=== PATIENT | female | born 1930 | race Caucasian/White ===

== ENCOUNTER 2018-10-07 10:22 | Day surgery (SDC) | payer MEDICARE ==
--- NOTE | 2018-10-07 05:58 | History and Physical - Ferro ---
CHIEF COMPLAINT/HISTORY OF CHIEF COMPLAINT: This patient presents with a history of an intractable thoracic radiculopathy. Due to the failure of conservative therapy, she is here for an implanted spinal catheter infusion trial of Hydromorphone to determine if the implantation of a permanent system can be of any value in pain control. PAST MEDICAL HISTORY: Hypertension. PAST SURGICAL HISTORY: None listed. MEDICATIONS ON ADMISSION: List to be provided. ALLERGIES: PHENERGAN. FAMILY/PSYCHOSOCIAL HISTORY: Social history - Noncontributory. Family history - Coronary artery disease and hypertension. SYSTEMS REVIEW: The patient is appropriate in no acute distress. The remainder of the systems review is positive for glasses, dentures, thyroid disease, peripheral neuropathy, hypertension, cerebrovascular disease, reflux, gastritis, diverticular disease, degenerative arthritis and difficulty sleeping. PHYSICAL EXAMINATION: Height is 4'11", weight is 190. No vital signs. HEENT: Within normal limits. LUNGS: Clear. HEART: Rapid and regular. ABDOMEN: Nontender. MUSCULOSKELETAL: Examination of the musculoskeletal system shows the primary pain pattern to be in the mid thoracic spine on the left. There is a low back component which extends down the right leg. Sensory mays are intact. There is motor weakness to the right leg. There is no weakness, no sensory abnormalities into the chest wall. A cervical spine fusion is noted on studies. NEUROLOGIC: Cranial nerves are intact. IMPRESSION: THORACIC AND LUMBAR RADICULOPATHY, ICD-10 CODE M54.14 AND M54.16. PLAN: The patient is here for an implanted spinal catheter infusion trial of Hydromorphone to determine if a permanent implantation would be of any value in pain control. The procedure will be considered outpatient although an overnight stay will be evaluated. The potential risks and complications have all been carefully reviewed. She understands that an epidural blood patchy will be performed which will require keeping flat for four hours and slowly elevated for one. Although it is possible to do outpatient, I am highly recommending reduced incidence of side effects if she stays overnight and be discharged in the morning. JOB NUMBER: [id number] [facility]
[~2018-10-07 10:22] MED LIST: ACETAMINOPHEN 1,000 MG/100 ML BTL IVPB ONE; CEFAZOLIN 2 Gram 2 GM/50 ML BAG IVPB ONE; FAMOTIDINE 20MG TABLET PO ONE; HYDROMORPHONE PF 2MG/ML AMP 0.008 MG in 0.9 % SODIUM CHLORIDE 10ML VIA 0.996 ML IV ONE; HYDROMORPHONE PF 2MG/ML AMP 8 MG in 0.9 % SODIUM CHLORIDE 500ML 496 ML IV ONE; MECLIZINE 25 MG TABLET PO ONE
[2018-10-07] MEDS ORDERED: FENTANYL PF 100MCG/2ML VIAL IV ONE (10:23)
[2018-10-07] MEDS ORDERED: MIDAZOLAM HCL 2MG/2ML VIAL IV ONE (10:23)
[2018-10-07] MEDS ORDERED: 0.9 % SODIUM CHLORIDE 10 ML VIAL IVP ONE (10:23)
[2018-10-07] MEDS ORDERED: LIDOCAINE 2% MDV (20MG/ML) 20ML VIAL IV ONE (10:23)
[2018-10-07] MEDS ORDERED: PROPOFOL 10 MG/ML VIAL IV ONE (10:23)
[2018-10-07] MEDS ORDERED: NALOXONE 0.4 MG/1 ML VIAL IVP ONE (10:23)
[2018-10-07] MEDS ORDERED: CEFAZOLIN 1G VIAL IVP ONE (10:23)
[2018-10-07] MEDS ORDERED: RINGERS SOLUTION,LACTATED 1,000 ML IV ONE (11:20)
[2018-10-07] MEDS ORDERED: LIDOCAINE 1% W/EPI 1:100,000 MDV 20 ML VIAL SQ ONE (13:40)
[2018-10-07] MEDS ORDERED: BUPIVACAINE 0.5% W/EPI MPF 30 ML VIAL SQ ONE (13:40)
[2018-10-07] MEDS ORDERED: ONDANSETRON 4 MG ODT TABLET SL PRN (14:43)
[2018-10-07] MEDS ORDERED: ALBUTEROL SULFATE (0.083%) 2.5 MG/3 ML NEB INH PRN (14:44)
[2018-10-07] MEDS ORDERED: SENNOSIDES/DOCUSATE SODIUM UD CAPSULE PO PRN ×2 (14:45)
[2018-10-07] MEDS ORDERED: HYDROMORPHONE HCL 2 MG/ML VIAL IM PRN ×2 (14:45)
[2018-10-07] MEDS ORDERED: DIPHENHYDRAMINE HCL 50 MG/ML VIAL IVP PRN ×2 (14:45)
[2018-10-07] MEDS ORDERED: ACYCLOVIR 200 MG CAPSULE PO SCH (14:45)
[2018-10-07] MEDS ORDERED: ACETAMINOPHEN 325 MG TAB PO PRN ×2 (14:45)
[2018-10-07] MEDS ORDERED: OXYCODONE/APAP 10MG-325MG TABLET PO PRN ×2 (14:45)
[2018-10-07] MEDS ORDERED: AL HYDROX/MAG HYDROX 30ML UD PO PRN (14:45)
[2018-10-07] MEDS ORDERED: NALOXONE 0.4 MG/1 ML VIAL IVP PRN (14:45)
[2018-10-07] MEDS ORDERED: CITALOPRAM 20 MG TABLET PO SCH (14:45)
[2018-10-07] MEDS ORDERED: TEMAZEPAM 15 MG CAPSULE PO PRN ×2 (14:45)
[2018-10-07] MEDS ORDERED: DIPHENHYDRAMINE HCL 25 MG CAPSULE PO PRN ×2 (14:45)
[2018-10-07] MEDS ORDERED: HYDROCODONE/APAP 7.5/325MG TABLET PO PRN (14:45)
[2018-10-07] MEDS: LEVOTHYROXINE SODIUM 75 MCG TABLET PO SCH (15:07)
[2018-10-07] MEDS: HYDROCODONE/APAP 7.5/325MG TABLET PO PRN ×2 (16:36→21:29)
[2018-10-07] MEDS: RINGERS SOLUTION,LACTATED 1,000 ML IV SCH ×2 (19:00→23:29)
[2018-10-07] MEDS: CEFAZOLIN 2 Gram 2 GM/50 ML BAG IVPB SCH (20:55)
[2018-10-07] MEDS ORDERED: ZOLPIDEM TARTRATE 5 MG TABLET PO SCH (22:00)
[2018-10-07] MEDS ORDERED: SIMVASTATIN 20 MG TABLET PO SCH (22:00)
[2018-10-08] MEDS: CEFAZOLIN 2 Gram 2 GM/50 ML BAG IVPB SCH (05:18)
[2018-10-08] MEDS ORDERED: PANTOPRAZOLE SODIUM 40 MG TABLET PO SCH (07:00)
[2018-10-08] MEDS: LEVOTHYROXINE SODIUM 75 MCG TABLET PO SCH (07:50)
[2018-10-08] MEDS ORDERED: FUROSEMIDE 40 MG TABLET PO SCH (10:00)
[2018-10-08] MEDS ORDERED: VALSARTAN 80 MG TAB PO SCH (10:00)
--- NOTE | 2018-10-08 20:55 | RADIOLOGY REPORT ---
EXAM: SPINE, 1 VIEW HISTORY: STATUS POST SPINAL CATHETER IMPLANT FOR TRIAL. ATTENTION T12. TECHNIQUE: A single AP supine view of the lower two-thirds of the thoracic spine and the lumbar portion of the spine obtained. COMPARISON: Same-day intraoperative radiograph. FINDINGS: There is a single interspinal catheter in place. This appears to enter the spinal canal at the mid lumbar level. The tip of the catheter projects at the T11 vertebral body level. There are degenerative changes scattered throughout the visualized spine associated with mild dextroconvex curvature centered at the L2-L3 level. There are multilevel degenerative disc/degenerative endplate changes, mild to moderate in degree. The aortic knob is atherosclerotic. There are midline surgical skin nguyễn, likely posteriorly at the L3 level. Abdominal wall nguyễn are also suggested in the midline. IMPRESSION: INTRASPINAL CATHETER IN PLACE WITH ITS TIP AT THE T11 LEVEL. JOB NUMBER: [id number] [facility]
--- NOTE | 2018-10-09 15:01 | Operative Note ---
DATE OF SURGERY: 10/07/2018 PREOPERATIVE DIAGNOSIS: Intractable thoracic and lumbar radiculopathy, ICD10 code M54.14 and M54.16. OPERATION: 1. Fluoroscopic-guided access spinal space at L3-4, placement of thin-walled spinal catheter T11. 2. Diagnostic myelography with radiologic supervision and interpretation. 3. Spinal bolus hydromorphone 0.004 mg. 4. Incision, subcutaneous dissection, and anchoring of spinal catheter to supraspinous fascia with anchoring device and nonabsorbable suture. 5. Incision, subcutaneous dissection, and creation of subcutaneous pouch at left posterior gluteal margin. 6. Tunneling spinal catheter into left posterior pouch, interface spinal catheter with second catheter component by way of connector, tunneling second catheter component 6 cm superior exiting the skin. 7. Interface external catheter to external pump set to deliver hydromorphone at 0.16 mg a day. 8. Closure of posterior gluteal pouch running nylon, closure of midline incision with Vicryl for fascia and nguyễn for skin. OpSite dressing placed securing catheter and all connections under sterile dressing. 9. Epidural blood patch at L4-5 20 mL autologous blood sterile technique left antecubital. SURGEON: Kenrick George, ANESTHESIA: Local with sedation. ANESTHESIA PROVIDER: Karel Vidal INDICATION: This patient presents with a history of intractable thoracic and lumbar radiculopathy. Due to the failure of all therapies, she is here for an implanted spinal catheter infusion trial with hydromorphone to determine if the implantation of a permanent system can be of any value in pain control. PROCEDURE: Intravenous line, vital sign monitoring, IV sedation. Prepped and draped in sterile technique. Patient positioned prone. The spinal interspace at L3-4 was marked, infiltrated 20-gauge spinal needle paramedian approach bevel with the long axis inserted in the spinal space. With CSF flow, a thin-walled spinal catheter was advanced and positioned T11. Diagnostic myelography showed appropriate flow characteristics smooth linear in the space. No unusual response on the part of the patient. A bolus of hydromorphone to the spinal space 0.004 mg was given. CSF flow still noted through the catheter. Catheter clamped. The skin above and below the needle infiltrated, incision made, and subcutaneous dissection was conducted to the supraspinous fascia. The needle was removed and the catheter was anchored to the supraspinous fascia with an anchor device and nonabsorbable suture. At the left posterior gluteal margin, ultimately a site for the pump, skin infiltrated, incision made, and subcutaneous dissection was performed to form a shallow pouch. Spinal catheter from midline was then tunneling into this pouch, and the catheter was interfaced to a second catheter component which was tunneled 6 cm superior from this pouch exiting the skin. This external catheter was then interfaced to an external pump which was set to deliver hydromorphone at 0.16 mg a day. The flank pouch was closed with a running nylon. The midline pouch was closed with Vicryl for fascia, nguyễn for skin. At L4-5, which was one level below the dural puncture, skin infiltrated and a 17-gauge Tuohy needle with loss of resistance into the epidural space. Simultaneously, 20 mL autologous blood drawn sterile technique from the left antecubital. Placed onto the field. An epidural blood patch performed at this level with this blood. Needle removed. Sterile dressing applied over the incisional sites and securing the catheter and all connections under the sterile dressing. She was then transported to the recovery room stable, flat, pillow under head and knees. She was stable. No unusual pain patterns. Full functionality of extremities. She will be monitored until stable and then transported to the floor. She will be kept flat for 4 hours, slowly elevated for 1, and be kept overnight for observation, discharged in the morning. DISCHARGE INSTRUCTIONS: 1. Sites to remain clean and dry. No showering or bathing in any way that would disrupt dressings. If it happens, contact the clinic. 2. Standard medications resumed including the antibiotic Levaquin 500 mg once a day for 14 days. 3. The trial is scheduled for 14 days. During this period of time, we will set up 3 increases in the office setting. At the end of the trial period, we will either implant the permanent system or move the implanted catheter. All instructions provided. Spinal opioid side effects of respiratory depression, nausea, vomiting, constipation, urinary retention, lightheadedness, or rash have all been discussed and reviewed. [facility]
== END 2018-10-08 10:50 | disposition home or self-care (01) ==
LOC: SUR 10:22 → MEDSURG 14:25 → SUR 10-08 10:50
PROVIDERS: ATTEND Pain Medicine Interventional Pain Medicine
DX: M54.14 Radiculopathy, thoracic region (principal); M54.16 Radiculopathy, lumbar region; I10 Essential (primary) hypertension; J44.9 Chronic obstructive pulmonary disease, unspecified; E78.00 Pure hypercholesterolemia, unspecified; K21.9 Gastro-esophageal reflux disease without esophagitis; Z86.73 Personal history of transient ischemic attack (TIA), and cerebral infarction without residual deficits
CPT/HCPCS: 62350; 62360; 62273; 01936; 72020; 94640; Q9967; J3490; J3010; J0690 ×2; J1170; J1200; J2310; J7040; J7120; J7613

== ENCOUNTER 2018-10-21 08:51 | Day surgery (SDC) | payer MEDICARE ==
--- NOTE | 2018-10-21 06:48 | History and Physical - Ferro ---
CHIEF COMPLAINT/HISTORY OF CHIEF COMPLAINT: This patient with an implanted catheter infusion trial has been hospitalized for a urinary tract infection since the trial was initiated. Because of f a number of other issues all related to the urinary tract infection it was felt appropriate to remove the implanted catheter. PAST MEDICAL HISTORY: Hypertension. PAST SURGICAL HISTORY: None listed. MEDICATIONS ON ADMISSION: List to be provided. ALLERGIES: PHENERGAN. FAMILY/PSYCHOSOCIAL HISTORY: Social history - As noted. Family history - As noted. SYSTEMS REVIEW: The patient is appropriate in no acute distress. PHYSICAL EXAMINATION: Height is 4'11", weight is 190. HEENT: Within normal limits. LUNGS: Clear. HEART: Rapid and regular. ABDOMEN: Nontender. MUSCULOSKELETAL: Examination of the musculoskeletal system shows the dressing for the implanted catheter trial to be intact. The pump is currently off. IMPRESSION: 1. THORACIC AND LUMBAR RADICULOPATHY, ICD-10 CODE M54.14 AND M54.16. 2. IMPLANTED SPINAL CATHETER INFUSION TRIAL USING HYDROMORPHONE. PLAN: The patient is here for removal of the implanted catheter because of a urinary tract infection that is not resolving with medications or antibiotics. The patient is being sent to a rehab facility. The risks, side effects and complications have been reviewed and noted. She will continue her antibiotics. She will be under the care of a restorative rehab aide. J[facility]BER: [id number] [facility]
[~2018-10-21 08:51] MED LIST changes: +ACETAMINOPHEN 1,000 MG/100 ML BTL IV ONE; -ACETAMINOPHEN 1,000 MG/100 ML BTL IVPB ONE; -HYDROMORPHONE PF 2MG/ML AMP 0.008 MG in 0.9 % SODIUM CHLORIDE 10ML VIA 0.996 ML IV ONE; -HYDROMORPHONE PF 2MG/ML AMP 8 MG in 0.9 % SODIUM CHLORIDE 500ML 496 ML IV ONE
[2018-10-21] MEDS ORDERED: MIDAZOLAM HCL 2MG/2ML VIAL IV ONE (08:52)
[2018-10-21] MEDS ORDERED: LIDOCAINE 2% MDV (20MG/ML) 20ML VIAL IV ONE (08:52)
[2018-10-21] MEDS ORDERED: PROPOFOL 10 MG/ML VIAL IV ONE (08:52)
[2018-10-21] MEDS ORDERED: FENTANYL PF 100MCG/2ML VIAL IV ONE (08:52)
[2018-10-21] MEDS ORDERED: RINGERS SOLUTION,LACTATED 1,000 ML IV ONE ×2 (10:15→10:38)
[2018-10-21] MEDS ORDERED: LIDOCAINE 1% W/EPI 1:200,000 MPF 30ML SQ ONE (11:07)
[2018-10-21] MEDS ORDERED: BUPIVACAINE 0.5% W/EPI MPF 30 ML VIAL SQ ONE (11:08)
[2018-10-21] MEDS ORDERED: HYDROCODONE/APAP 7.5/325MG TABLET PO ONE (12:05)
--- NOTE | 2018-10-26 09:12 | Operative Note ---
DATE OF SURGERY: 10/21/2018 PREOPERATIVE DIAGNOSES: 1. Thoracic and lumbar radiculopathy, ICD10 code M54.14 and M54.16. 2. Implanted spinal catheter infusion trial of hydromorphone. OPERATION: 1. Fluoroscopic-guided incision, subcutaneous dissection, and removal of implanted spinal catheter. 2. Incision, subcutaneous dissection, and removal of externalized secondary catheter for pump infusion. SURGEON: Kenrick George DO ANESTHESIA: Local with sedation. ANESTHESIA PROVIDER: Arun Rivers INDICATION: This patient presents with a history of intractable thoracic and lumbar radiculopathy. Due to the failure of therapy, an implanted spinal catheter infusion trial was initiated with hydromorphone. Although the patient received 100% pain control, within the first several days she began demonstrating some mild peripheral edema. Her infusion was reduced by 50% reducing the edema and still resulting in 100% pain control. She started to have side effects which were felt consistent with the antibiotic. However, family members had her admitted to [facility] where she was evaluated and found to have a urinary tract infection. She was kept in the hospital for management of her infection for a few days. The pump had been turned off. She was evaluated for possible admission and management long-term at a nursing facility. She is here for catheter removal. PROCEDURE: Intravenous line, vital sign monitoring, IV sedation by Anesthesia. Patient positioned prone. Sterile prep, sterile technique. Incision for the implanted catheter was infiltrated. Incision made, subcutaneous dissection was conducted to the anchor. Anchoring suture removed, anchor device was removed. A pursestring suture placed around the penetraction point, and the spinal catheter was removed. The pursestring suture tightened stopping CSF leak. At the left posterior gluteal margin, site for the interface and external catheter, skin infiltrated, incision made, and subcutaneous dissection was conducted to the interface. The externalized catheter was then removed by pulling away from the site. Antibiotic irrigation, Bovie for hemostasis. Both incisions were then closed using Vicryl for fascia and nguyễn for skin. Tegaderm and OpSite dressing was placed. She was transported to the recovery room stable. Catheter had been removed intact. Tryon have been placed approximating the incisions after the 2-0 Vicryl had been used for fascia. DISCHARGE INSTRUCTIONS: 1. Sites to remain clean and dry. She is being discharged back to [facility]. 2. Office to contact the patient and set up a time for removal of the nguyễn in 7-10 days. 3. Keflex antibiotic will be used 500 mg 4 times a day for 10 days. An appropriate prescription has been written. All the instructions provided. She will be seen in the office. SHOS[facility]NA
== END 2018-10-21 12:08 | disposition short-term general hospital, planned readmission (82) ==
LOC: SUR 08:51
PROVIDERS: ATTEND Pain Medicine Interventional Pain Medicine
DX: M54.14 Radiculopathy, thoracic region (principal); M54.16 Radiculopathy, lumbar region; J44.9 Chronic obstructive pulmonary disease, unspecified; K21.9 Gastro-esophageal reflux disease without esophagitis; I10 Essential (primary) hypertension; E78.00 Pure hypercholesterolemia, unspecified; B00.9 Herpesviral infection, unspecified; Z86.73 Personal history of transient ischemic attack (TIA), and cerebral infarction without residual deficits
CPT/HCPCS: 62355; 00300; J3010; J0690; J7120